=== PATIENT | female | born 1995 | race Caucasian/White ===

== ENCOUNTER 2017-10-27 05:20 | Emergency (ER) | payer OTHER ==
[~2017-10-27] VITALS: Ht 165.1 cm; Wt 59.0 kg
[2017-10-27 05:38] VITALS: BP_SYST 102
--- NOTE | 2017-10-27 05:38 | NUR ---
Patient to ER bed 7 to gown for evaluation. Side rails up. Report given to Norma NOGUERA.
--- NOTE | 2017-10-27 05:45 | NUR ---
Patient AOx4, ambulatory, presents to ER with complaint of right lower quadrant abdominal pain 8/10 x1 week with symptoms worsening this AM. Patient also states episodes of nausea. No other symptoms or complaints at this time.
--- NOTE | 2017-10-27 06:20 | NUR ---
BARBY Arias at bedside for medical evaluation.
[2017-10-27 06:49] LABS: BILIRUBIN,URINE NEGATIVE (NEGATIVE); BLOOD, URINE NEGATIVE (NEGATIVE); COLOR,URINE YELLOW (YELLOW); GLUCOSE,URINE NEGATIVE (NEGATIVE); KETONES,URINE NEGATIVE (NEGATIVE); LEUKOCYTE ESTERASE ,URINE NEGATIVE (NEGATIVE); NITRITE, URINE NEGATIVE (NEGATIVE); PH,URINE 5.5 (5.0-8.0); PROTEIN URINE NEGATIVE (NEGATIVE); UROBILINOGEN,URINE 0.2 (0.2-1.0)
[2017-10-27 06:53] LABS: CLARITY/URINE CLEAR (CLEAR)
--- NOTE | 2017-10-27 07:04 | NUR ---
Patient given written and verbal discharge instructions and verbalizes understanding. ER MD discussed with patient the results and treatment provided. Patient in stable condition. ID arm band removed. Rx of Colace and Mag Citrate given. Patient educated on pain management and to follow up with PMD. Pain Scale 0/10. Opportunity for questions provided and answered. Medication side effect fact sheet provided.
[2017-10-27 07:09] VITALS: BP_SYST 110
== END 2017-10-27 07:04 | disposition home or self-care (01) ==
LOC: SED 05:20
DX: K59.00 Constipation, unspecified (principal); G43.909 Migraine, unspecified, not intractable, without status migrainosus; E03.9 Hypothyroidism, unspecified; Z91.018 Allergy to other foods
CPT/HCPCS: 81003; 81025; 99283